=== PATIENT | female | born 1960 | race Caucasian/White ===

== ENCOUNTER → 2016-03-27 | Outpatient (CLI) | payer BC ==
--- NOTE | 2016-03-27 12:53 | MA ---
Screening Digital Mammogram With Tomosynthesis Clinical Indications: Routine screening. Technique: Standard digital cephalocaudal and tomosynthesis mediolateral oblique projections are obt ained. The digital images were processed by the [employer] computer aided detection system. Comparison: March 2015, February 2014, December 2012 and October 2011 Breast density: B; There are scattered fibroglandular densities. Findings: CAD was reviewed. No suspicious findings are identified. Impression: Negative mammogram. BI-RADS 1. Recommendation: Routine screening is recommended in one year. [facility] will send a result letter to the patient. Negative mammography should not preclude additional workup of a clinically suspicious finding. The patient's information is entered into a reminder system with a target due date for her next mammo gram.
== END ==
LOC: FIMAGING 11:42
DX: Z12.31 Encounter for screening mammogram for malignant neoplasm of breast (principal)
CPT/HCPCS: G0202

== ENCOUNTER 2016-10-04 15:41 | Emergency (ER) | payer BC ==
[2016-10-04] MEDS ORDERED: IBUPROFEN 200 MG TAB PO ONE (16:15)
[2016-10-04] MEDS ORDERED: ACETAMINOPHEN 325 MG TAB PO ONE (16:37)
[2016-10-04] MEDS ORDERED: NS 1,000 ML IV ONE ×2 (16:37)
[2016-10-04 16:43] LABS: % IMMATURE GRANULYOCYTES 0.7 % (0.0-1.1); ABSOLUTE IMMATURE GRANULOCYTES 0.05 10^3/uL (0.00-0.10); ADD DIFF? NO; ADD MORPH? NO; ADD SCAN? NO; ATYPICAL LYMPHOCYTE FLAG 0 (0-99); FRAGMENT RBC FLAG 0 (0-99); HEMATOCRIT 39.6 % (38.0-47.0); HEMOGLOBIN 13.1 g/dL (12.6-16.3); LEFT SHIFT FLG 0 (0-99); LIPEMIA HEMOLYSIS FLAG 80 (0-99); MEAN CELL HEMOGLOBIN CONCENTR. 33.1 g/dL (32.4-36.7); MEAN CELL VOLUME 87.6 fL (81.5-99.8); PLATELET CLUMPS FLAG 10 (0-99); PLATELET COUNT 164 10^3/uL (150-400); RED BLOOD CELL COUNT 4.52 10^6/uL (4.18-5.33); RED CELL DISTRIBUTION WIDTH 13.6 % (11.5-15.2)
--- NOTE | 2016-10-04 16:43 | EDPHY ---
H & P Time Seen by Provider: 10/04/16 16:21 HPI/ROS: CHIEF COMPLAINT: Fever and feeling "super hot" HISTORY OF PRESENT ILLNESS: Patient has been sick since yesterday with dysuria and pain with urination as well as fever and chills and feeling very hot. Symptoms moderate to severe. Associated with nausea and vomiting yesterday and a little bit of a headache today. No stiff neck. No recent travel. Mild sore throat. REVIEW OF SYSTEMS: Eye: no change in vision ENT: No ear symptoms Cardiac: no chest pain or syncope Pulmonary: no cough or SOB Abdomen: No abdominal pain or diarrhea Musculoskeletal: no back pain Skin: no rash Neuro: HPI, no confusion Constitutional: HPI : no urinary symptoms A comprehensive 10 point review of systems is otherwise negative aside from elements mentioned in the history of present illness. PAST MEDICAL HISTORY: Left ankle surgery and hysterectomy Social history: Here with her partner, no drug abuse or recent foreign travel. PCP Nii Fry. General Appearance: Alert and conversant, cooperative. Eyes: No scleral icterus. ENT, Mouth: Slightly dry mucous membranes, no trismus, otherwise normal pharynx. Respiratory: Normal respiratory effort, breath sounds equal, lungs are clear to auscultation. Cardiovascular: Regular rate and rhythm. Gastrointestinal: Abdomen is soft and non tender. Neurological: Alert and oriented x3. Normally conversant. Face symmetric, normal movement and sensation in all extremities. Ambulatory. Skin: Warm and dry, no rashes. Musculoskeletal: No stiff neck, no meningeal signs. Psychiatric: Not agitated. Emergency Department course/MDM: Tylenol for fever, normal saline 2 L IV for tachycardia, urinalysis. 1710: Results discussed, ceftriaxone 1 g IV. Likely pyelonephritis. Heart rate down to 72 in afebrile at discharge. Okay for outpatient management, patient agreeable. Smoking Status: Never smoked Constitutional: Initial Vital Signs Temperature (C) 38.6 C H 10/04/16 15:44 Heart Rate 113 H 10/04/16 15:44 Respiratory Rate 14 10/04/16 15:44 Blood Pressure 157/97 H 10/04/16 15:44 O2 Sat (%) 93 10/04/16 15:44 O2 Delivery Mode Room Air Allergies/Adverse Reactions: No Known Allergies Allergy (Unverified 10/04/16 15:47) Home Medications: Medication Instructions Recorded Cephalexin [Keflex] 500 mg PO QID #28 cap 10/04/16 Levothyroxine Sodium [Synthroid] 300 mcg PO 10/04/16 Ondansetron Odt [Zofran Odt] 4 mg PO Q4PRN #6 tab 10/04/16 Simvastatin 40 mg PO 10/04/16 Medical Decision Making Differential Diagnosis: Differential considered including but not limited to pneumonia, viral syndrome, influenza, pyelonephritis, sepsis. - Data Points Laboratory Results: Laboratory Results 10/04/16 16:30 10/04/16 16:30 10/04/16 10/04/16 10/04/16 16:30 16:30 16:30 WBC 6.74 10^3/uL 10^3/uL (3.80-9.50) RBC 4.52 10^6/uL 10^6/uL (4.18-5.33) Hgb 13.1 g/dL g/dL (12.6-16.3) Hct 39.6 % % (38.0-47.0) MCV 87.6 fL fL (81.5-99.8) MCH 29.0 pg pg (27.9-34.1) MCHC 33.1 g/dL g/dL (32.4-36.7) RDW 13.6 % % (11.5-15.2) Plt Count 164 10^3/uL 10^3/uL (150-400) MPV 11.0 fL fL (8.7-11.7) Neut % (Auto) 77.9 % H % (39.3-74.2) Lymph % (Auto) 12.3 % L % (15.0-45.0) [place] % (Auto) 8.2 % % (4.5-13.0) Eos % (Auto) 0.3 % L % (0.6-7.6) Baso % (Auto) 0.6 % % (0.3-1.7) Nucleat RBC Rel Count 0.0 % % (0.0-0.2) Absolute Neuts (auto) 5.25 10^3/uL 10^3/uL (1.70-6.50) Absolute Lymphs (auto) 0.83 10^3/uL L 10^3/uL (1.00-3.00) Absolute Monos (auto) 0.55 10^3/uL 10^3/uL (0.30-0.80) Absolute Eos (auto) 0.02 10^3/uL L 10^3/uL (0.03-0.40) Absolute Basos (auto) 0.04 10^3/uL 10^3/uL (0.02-0.10) Absolute Nucleated RBC 0.00 10^3/uL 10^3/uL (0-0.01) Immature Gran % 0.7 % % (0.0-1.1) Immature Gran # 0.05 10^3/uL 10^3/uL (0.00-0.10) Sodium 137 mEq/L mEq/L (134-144) Potassium 4.0 mEq/L mEq/L (3.5-5.2) Chloride 99 mEq/L mEq/L (97-110) Carbon Dioxide 23 mEq/l mEq/l (22-31) Anion Gap 15 mEq/L mEq/L (8-16) BUN 16 mg/dL mg/dL (7-23) Creatinine 0.9 mg/dL mg/dL (0.6-1.0) Estimated GFR > 60 Glucose 104 mg/dL H mg/dL (70-100) Calcium 9.9 mg/dL mg/dL (8.5-10.4) Urine Color DARI Urine Appearance CLEAR Urine pH 7.0 (5.0-7.5) Ur Specific [place] 1.011 (1.002-1.030) Urine Protein 1+ H (NEGATIVE) Urine Ketones TNP Urine Blood 1+ H (NEGATIVE) Urine Nitrate TNP Urine Bilirubin NEGATIVE (NEGATIVE) Urine Urobilinogen TNP Ur Leukocyte Esterase TNP Urine RBC 5-10 /hpf H /hpf (0-3) Urine WBC 25-50 /hpf H /hpf (0-3) Ur Epithelial Cells TRACE /lpf /lpf (NONE-1+) Urine Bacteria 1+ /hpf H /hpf (NONE SEEN) Urine Mucus TRACE /lpf /lpf (NONE-1+) Urine Glucose NEGATIVE (NEGATIVE) Medications Given: Discontinued Medications Acetaminophen (Tylenol) 650 mg PO EDNOW ONE Stop: 10/04/16 16:38 Last Admin: 10/04/16 16:51 Dose: 650 mg Sodium Chloride (Ns) 1,000 mls @ 0 mls/hr IV EDNOW ONE; Wide Open PRN Reason: Protocol Stop: 10/04/16 16:38 Last Admin: 10/04/16 16:50 Dose: 1,000 mls Sodium Chloride (Ns) 1,000 mls @ 0 mls/hr IV EDNOW ONE; Wide Open PRN Reason: Protocol Stop: 10/04/16 16:38 Last Admin: 10/04/16 16:51 Dose: 1,000 mls Ceftriaxone Sodium/Dextrose (Rocephin 1 Gm (Premix)) 50 mls @ 100 mls/hr IV EDNOW ONE PRN Reason: Protocol Stop: 10/04/16 17:40 Last Admin: 10/04/16 17:32 Dose: 50 mls Ibuprofen (Motrin) 800 mg PO EDNOW ONE Stop: 10/04/16 16:16 Last Admin: 10/04/16 16:21 Dose: 800 mg Departure - Departure Disposition: Home, Routine, Self-Care Clinical Impression: Pyelonephritis Condition: Good Instructions: Kidney Infection (ED) Referrals: Jennifer Fry MD [Primary Care Provider] - As per Instructions Prescriptions: Cephalexin [Keflex] 500 mg PO QID #28 cap Ondansetron Odt [Zofran Odt] 4 mg PO Q4PRN #6 tab
[2016-10-04 16:54] LABS: ANION GAP 15 mEq/L (8-16); CALCIUM 9.9 mg/dL (8.5-10.4); CARBON DIOXIDE 23 mEq/l (22-31); CHLORIDE 99 mEq/L (97-110); CREATININE 0.9 mg/dL (0.6-1.0); GLOMERULAR FILTRATION RATE > 60; GLUCOSE 104 mg/dL (70-100); SODIUM 137 mEq/L (134-144)
[2016-10-04 16:59] LABS: COLOR AMBER
[2016-10-04 17:07] LABS: BACTERIA 1+ /hpf (NONE SEEN); MUCUS TRACE /lpf (NONE-1+); WBC,URINE 25-50 /hpf (0-3)
[2016-10-04 18:48] VITALS: BP 119/80; PULSE 72; RESP 20; TEMP 99.3; O2SAT 97
== END 2016-10-04 18:48 | disposition home or self-care (01) ==
LOC: EEVIPCON 15:41
DX: N12 Tubulo-interstitial nephritis, not specified as acute or chronic (principal); E86.9 Volume depletion, unspecified; B96.20 Unspecified Escherichia coli [E. coli] as the cause of diseases classified elsewhere
CPT/HCPCS: 96365; J0696

== ENCOUNTER → 2018-08-16 | Outpatient (CLI) | payer BC | LOC: FIMAGING 10:06 ==